=== PATIENT | female | born 1990 | race Two or more races ===

== ENCOUNTER 2017-06-20 15:12 | Outpatient (CLI) | payer OTHER | END 2017-06-20 15:19 | disposition home or self-care (01) | LOC: LAB 15:12 | DX: J11.1 Influenza due to unidentified influenza virus with other respiratory manifestations (principal) ==

== ENCOUNTER → 2020-09-14 14:39 | Outpatient (CLI) | payer OTHER | END | disposition home or self-care (01) | LOC: LAB 14:39 | PROVIDERS: ATTEND Specialist/Technologist, Other Nephrology | DX: U07.1 COVID-19 (principal); Z03.818 Encounter for observation for suspected exposure to other biological agents ruled out ==